=== PATIENT | male | born 1960 | race African-American/Black ===

== ENCOUNTER 2022-10-15 15:49 | Emergency (ER) | payer OTHER ==
[2022-10-15 16:13] VITALS: BP 104/71; PULSE 77; RESP 18; TEMP 98.6; BMI 25.0
[2022-10-15] MEDS ORDERED: EMTRICITABINE 200MG/TENOFOVIR 300MG PO ONE (17:18)
[2022-10-15] MEDS ORDERED: RALTEGRAVIR POTASSIUM 400 MG TAB PO ONE (17:18)
[2022-10-15] MEDS ORDERED: TETANUS AND DIPHTHERIA TOXOID 0.5 ML DISP.SYRIN IM ONE (17:18)
[2022-10-15 17:50] LABS: BASO % 1.1 % (0-2.0); EOS % 1.1 % (0-4.5); HEMATOCRIT 37.2 % (35.4-49); LYMPH % 27.7 % (8-40); MCH 27.1 pg (25.7-33.7); MCHC 32.3 g/dl (32.0-35.9); MEAN CELL VOLUME 83.8 fl (80-96); MEAN PLT VOLUME 7.1 fl (7.5-11.1); MONO % 6.9 % (3.8-10.2); NEUT % 63.2 % (42.8-82.8); PLATELET COUNT 232 10^3/uL (134-434); RBC 4.44 M/mm3 (4.00-5.60); WHITE BLOOD COUNT 7.1 K/mm3 (4.0-10.0)
[2022-10-15] MEDS ORDERED: HIV POST EXPOSURE PROPHYLAXIS KIT PO ONE (18:03)
[2022-10-15 18:05] LABS: CALCIUM 9.4 mg/dL (8.5-10.1)
[2022-10-15 18:08] LABS: URIC ACID 5.3 mg/dL (2.6-7.2)
[2022-10-15 18:09] LABS: CREATININE 1.2 mg/dL (0.55-1.3)
[2022-10-15 18:10] LABS: PHOSPHOROUS 3.2 mg/dL (2.5-4.9); TOT PROT 7.8 g/dl (6.4-8.2)
[2022-10-15 18:11] LABS: BILIRUBIN,TOTAL 0.4 mg/dL (0.2-1)
[2022-10-15 19:02] LABS: HIV INTERPRETATION NEGATIVE (NEGATIVE)
== END 2022-10-15 18:34 | disposition home or self-care (01) ==
LOC: JER 15:49 → JERFT 15:49
DX: S61.341A Puncture wound with foreign body of left index finger with damage to nail, initial encounter (principal); W46.0XXA Contact with hypodermic needle, initial encounter
CPT/HCPCS: 36415; 80053; 82465; 82977; 83615; 84100; 84478; 84550; 85025; 86704; 86803; 87340; 87389; 87517; 99283-25